=== PATIENT | male | born 1955 | race Caucasian/White ===

== ENCOUNTER 2019-07-23 14:40 | Emergency (ER) | payer OTHER, SELFPAY ==
[2019-07-23 15:06] VITALS: PULSE 85; RESP 16; TEMP 36.6; O2SAT 98
--- NOTE | 2019-07-23 15:09 | ED.NAVMDI ---
HPI - Nausea/Vomiting/Diarrhea General Chief complaint: Nausea/Vomiting/Diarrhea Stated complaint: possible food poison Source: patient Mode of arrival: ambulatory Limitations: no limitations History of Present Illness MD elicited complaint: nausea Onset (ago): hour(s) Associated nausea: Yes Associated abdominal pain: Yes Location of pain: epigastric Radiation: epigastric Severity: mild Quality: cramping Exacerbating factors: none Relieving factors: none Associated symptoms: nausea/vomiting Related Data Home Medications Medication Instructions Recorded Confirmed amlodipine 5 mg PO DAILY 07/23/19 07/23/19 lisinopril 30 mg PO DAILY 07/23/19 07/23/19 metformin 500 mg PO DAILY 07/23/19 07/23/19 topiramate 25 mg PO DAILY 07/23/19 07/23/19 Allergies Allergy/AdvReac Type Severity Reaction Status Date / Time No Known Allergies Allergy Verified 07/23/19 14:59 Review of Systems Review of Systems: All systems reviewed & are unremarkable except as noted in HPI and below PMFSH Past Medical History Medical History Diabetes mellitus HTN (hypertension) Exam Const: General: no acute distress and alert Nutritional Appearance: well nourished Orientation/consciousness: patient oriented x3 HENMT: Head: normal to inspection Eyes: Cornea: corneas normal Pupils: Equal, round and reactive pupils present Neck: Neck: normal visual inspection Chest: Chest palpation & inspection: normal inspection of the chest Resp: Effort & Inspection: normal respiratory effort Auscultation: clear to auscultation bilaterally Cardio: Rhythm: regular rhythm GI: GI Palp: Yes Soft to palpation and Yes Tenderness to palpation present (GI) : Testes: Testes normal Skin: General skin exam: normal color Rashes: no rashes Neuro: General: patient oriented x3 Psych: Appearance: grossly normal Mental Status: mental status grossly normal Thought content: Yes Normal thought content present Critical Care Time Critical Care Time Critical Care Time: No Discharge Plan Discharge Clinical Impression: Food poisoning, Nausea Patient Disposition: Home, Self-Care Condition: Stable Instructions: Antibiotic Form, Acute Nausea and Vomiting (ED), Food Poisoning (ED) Additional Instructions: Take medicine as prescribed and follow-up with primary care physician if symptoms persist or worsen. Drink plenty of fluids. Prescriptions: New ondansetron HCl [Zofran] 4 mg tablet 4 mg PO Q6H PRN (Reason: nausea and vomiting) Qty: 10 RF: 0 pantoprazole [Protonix] 40 mg tablet,delayed release (DR/EC) 40 mg PO HS 28 Days Qty: 28 RF: 0 No Action topiramate 25 mg tablet 25 mg PO DAILY RF: 0 amlodipine 5 mg tablet 5 mg PO DAILY RF: 0 lisinopril 30 mg tablet 30 mg PO DAILY RF: 0 metformin 500 mg tablet extended release 24 hr 500 mg PO DAILY RF: 0 Follow-up/Referrals: Amilcar,MD Oli [Primary Care Provider] - Time of Disposition: 15:15
[2019-07-23] MEDS: ONDANSETRON HCL ODT 4 MG TABLET PO (15:18)
[2019-07-23 15:19] VITALS: RESP 14; O2SAT 100
== END 2019-07-23 15:20 | disposition home or self-care (01) ==
PROVIDERS: Emergency Provider Emergency Medicine; PCP Family Medicine
DX: A05.9 Bacterial foodborne intoxication, unspecified (principal); R11.0 Nausea
CPT/HCPCS: 99283; A9270

== ENCOUNTER 2019-11-10 17:29 | Outpatient (CLI) | payer OTHER, SELFPAY ==
[2019-11-10 18:12] LABS: Prostate Specific Antigen 5.3 ng/mL (< OR = 4.0)
[2019-11-10 18:56] LABS: Add Urine Microscopic? YES; Appearance Urine Clear (Clear); Bilirubin Urine Negative (Negative); Blood Urine Negative (Negative); Color Urine Yellow (Yellow); Glucose Urine UA 3+ (Negative); Ketones Urine Negative (Negative); Leukocyte Esterase Ur Negative (Negative); Nitrate Urine Negative (Negative); Protein Urine Negative (Negative); pH Urine 6.5 (5.0-8.0)
[2019-11-10 19:01] LABS: Bacteria Urine Trace /hpf; RBC Urine 0-2 /hpf (0-2); Squamous Epithelial Cell Urine Rare /hpf (Few); WBC Urine 0-3 /hpf (0-3)
== END 2019-11-10 17:30 | disposition home or self-care (01) ==
LOC: CHSLAB 17:33
PROVIDERS: PCP Family Medicine
DX: N43.3 Hydrocele, unspecified (principal); R97.20 Elevated prostate specific antigen [PSA]; N41.1 Chronic prostatitis; N50.819 Testicular pain, unspecified
CPT/HCPCS: 36415; 81001; 84153; 87077; 87086; 87088; 87186

== ENCOUNTER 2019-11-10 17:42 | Emergency (ER) | payer OTHER, SELFPAY ==
[2019-11-10 17:54] VITALS: BP 151/86; PULSE 58; RESP 16; TEMP 36.3; O2SAT 96
--- NOTE | 2019-11-10 18:14 | ED.LOWEXIN ---
HPI - Extremity Injury (Lower) General Chief Complaint: Extremity Injury, Lower Stated Complaint: toe pain Source: patient Mode of arrival: ambulatory Limitations: no limitations History of Present Illness HPI Narrative: Right big toe pain started today; no history of trauma. has not clipped his nails a long time. Does not have nail clippers. No history of gout Related Data Home Medications Medication Instructions Recorded Confirmed metformin 500 mg PO DAILY 07/23/19 11/10/19 amlodipine 10 mg PO DAILY 11/10/19 11/10/19 fluvoxamine 150 mg PO HS 11/10/19 11/10/19 Allergies Allergy/AdvReac Type Severity Reaction Status Date / Time No Known Allergies Allergy Verified 07/23/19 14:59 Review of Systems Constitutional: Constitutional: Denies chills and Denies fever(s) Musculoskeletal: Comments: No right great toe joint pain. Integumentary/Breasts: Skin/Breast: Denies rash PMFSH Past Medical History Medical History Diabetes mellitus HTN (hypertension) Exam Const: General: no acute distress Skin: Other: right great toe is without rash or redness Extrem: Other: toenails are all long. Right great toe is without swelling. No MTP or IP tenderness or pain with movement. The nail extends past the nail bed about 1.5 cm. Third the dorsal nail is darkened. Patient states this is not new. I am able to reproduce his pain by lifting up on the nail. The nail was cut back by about 1 cm. There was white debris which was cleared away. There was no blood redness or drainage but pressure to this was uncomfortable. Course Course Emergency Course: The nail was taped down. Instructions were given to soak in hot water once or twice a day. Follow up with Oli Fitzgerald in 2 or 3 days if pain persists. Follow-up with a trading manager. Vital Signs Vital signs: Vital Signs Temperature 36.3 C L 11/10/19 17:54 Pulse Rate 58 L 11/10/19 17:54 Respiratory Rate 16 11/10/19 17:54 Blood Pressure 151/86 H 11/10/19 17:54 Pulse Oximetry 96 11/10/19 17:54 Temperature 36.3 C L 11/10/19 17:54 Pulse Rate 58 L 11/10/19 17:54 Respiratory Rate 16 11/10/19 17:54 Blood Pressure 151/86 H 11/10/19 17:54 Pulse Oximetry 96 11/10/19 17:54 MDM - Extremity Injury (Lower) MDM Narrative Medical decision making narrative: Pain with compression of the nail and lifting of the nail in the context of having very long nails suggest the nail may have been partially avulsed from the bed. Discharge Plan Discharge Clinical Impression: Pain in toe Patient Disposition: Home, Self-Care Condition: Stable Instructions: Antibiotic Form Additional Instructions: Follow-up with Oli Cano in 2 or 3 days if toe pain persists. Return if worsening pain. See a trading manager to have nails trimmed. Prescriptions: No Action metformin 500 mg tablet extended release 24 hr 500 mg PO DAILY RF: 0 amlodipine 10 mg tablet 10 mg PO DAILY RF: 0 fluvoxamine 150 mg Capsule,Extended Release 24hr 150 mg PO HS RF: 0 Follow-up/Referrals: Amilcar,MD Oli [Primary Care Provider] - Time of Disposition: 18:23
[2019-11-10 18:36] VITALS: RESP 15
== END 2019-11-10 18:42 | disposition home or self-care (01) ==
PROVIDERS: Emergency Provider Family Medicine; PCP Family Medicine
DX: M79.674 Pain in right toe(s) (principal)
CPT/HCPCS: 99281; 99282

== ENCOUNTER 2020-11-24 11:39 | Outpatient (CLI) | payer OTHER, SELFPAY ==
[2020-11-24 12:42] LABS: Prostate Specific Antigen 5.5 ng/mL (< OR = 4.0)
== END 2020-11-24 11:40 | disposition home or self-care (01) ==
PROVIDERS: PCP Family Medicine
DX: R97.20 Elevated prostate specific antigen [PSA] (principal)
CPT/HCPCS: 36415; 84153

== ENCOUNTER 2021-01-03 11:07 | Outpatient (CLI) | payer OTHER, SELFPAY ==
[2021-01-03 12:20] LABS: Prostate Specific Antigen 5.5 ng/mL (< OR = 4.0)
== END 2021-01-03 11:08 | disposition home or self-care (01) ==
LOC: CHSLAB 11:11
PROVIDERS: PCP Family Medicine
DX: R97.20 Elevated prostate specific antigen [PSA] (principal)
CPT/HCPCS: 36415; 84153

== ENCOUNTER 2021-08-16 21:23 | Emergency (ER) | payer OTHER, SELFPAY ==
[2021-08-16 21:54] VITALS: BP 134/82; PULSE 59; RESP 18; TEMP 36.8; O2SAT 96
--- NOTE | 2021-08-16 21:59 | ED.DENTAL ---
HPI - Dental/Oral General Chief complaint: Dental/Oral Stated complaint: tooth ache Time Seen by Provider: 08/16/21 21:59 Source: patient History of Present Illness HPI Narrative: 66-year-old male with a history of hypertension diabetes mellitus presents to the ER with right lower jaw pain/dental pain. The patient was seen by his dentist and advised deep cleaning of the right lower 1st molar. The patient developed severe pain. MD Complaint: tooth pain Location: Tooth # ( Number 30) Onset (ago): week(s) ( started 1 week ago) Duration: constant Severity scale (1-10): 8 Relieving factors: nothing Exacerbating factors: nothing Context: history of dental caries Treatment prior to arrival: topical analgesic Related Data Home Medications Medication Instructions Recorded Confirmed metformin 500 mg PO DAILY 07/23/19 08/16/21 amlodipine 10 mg PO DAILY 11/10/19 08/16/21 fluvoxamine 150 mg PO HS 11/10/19 08/16/21 famotidine 40 mg PO DAILY 08/16/21 08/16/21 glipizide 5 mg PO DAILY 08/16/21 08/16/21 lisinopril 30 mg PO DAILY 08/16/21 08/16/21 topiramate 25 mg PO DAILY 08/16/21 08/16/21 Allergies Allergy/AdvReac Type Severity Reaction Status Date / Time No Known Allergies Allergy Verified 08/16/21 22:04 Review of Systems Review of Systems: All systems reviewed & are unremarkable except as noted in HPI and below Constitutional: Constitutional: Reports as per HPI and Reports no additional constitutional complaints Eyes: Eyes: Reports as per HPI and Reports no additional eye complaints ENT: Reports system reviewed and no additional complaints, except as documented Comments: right lower jaw pain. Cardiovascular: Cardiovascular: Reports as per HPI and Reports no additional cardiovascular complaints Respiratory: Respiratory: Reports as per HPI and Reports no additional respiratory complaints Gastrointestinal: Gastrointestinal: Reports as per HPI and Reports no additional gastrointestinal complaints Genitourinary: Genitourinary: Reports no additional male genitourinary complaints Musculoskeletal: Musculoskeletal: Reports no additional musculoskeletal complaints and Reports as per HPI Integumentary/Breasts: Skin/Breast: Reports system reviewed and no additional complaints, except as docu and Reports as per HPI Neurologic: Reports system reviewed and no additional complaints, except as documented and Reports as per HPI Psychiatric: Psychiatric: Reports no additional psychiatric complaints and Reports as per HPI Endocrine: Endocrine: Reports no additional endocrine complaints Hematologic/Lymphatic: Hematologic/Lymphatic: Reports no additional hematologic/lymphatic complaints Allergic/Immunologic: Allergic/Immunologic: Reports no additional allergic/immunologic complaints [facility] Past Medical History Medical History (Updated 08/16/21 @ 22:11 by Robin Gonzales MD) Diabetes mellitus HTN (hypertension) Exam Const: General: no acute distress Orientation/consciousness: patient oriented x3 HENMT: Head: normal to inspection Other: All his upper teeth are missing and he has a plate. Bilateral lower 2nd and 3rd molars are missing. Right lower 1st molar looks carious and is tender. Eyes: Conjunctivae: conjunctivae normal Pupils: Equal, round and reactive pupils present Neck: Neck: normal visual inspection and no lymphadenopathy Chest: Chest palpation & inspection: normal inspection of the chest Resp: Effort & Inspection: normal respiratory effort Auscultation: clear to auscultation bilaterally Cardio: Rate: regular rate Rhythm: regular rhythm GI: Auscultation: normal bowel sounds : Testes: Testes normal Back/Spine/Pelvis: Back: no CVA tenderness Skin: General skin exam: normal color Neuro: General: patient oriented x3 and moves all extremities Extrem: General: normal to inspection Psych: Mental Status: mental status grossly normal Course Course Emergency Course: Right lower denta
[2021-08-16] MEDS: AMOXICILLIN 500 MG CAPSULE PO (22:36)
[2021-08-16] MEDS: HYDROcodone/acetaminophen (*CRX) 5-325 MG TABLET 2 TAB PO (22:37)
[2021-08-16 23:05] VITALS: BP 125/82; PULSE 57; RESP 18; TEMP 35.9; O2SAT 97
== END 2021-08-16 23:10 | disposition home or self-care (01) ==
PROVIDERS: Emergency Provider Internal Medicine Critical Care Medicine; PCP Family Medicine
DX: K08.89 Other specified disorders of teeth and supporting structures (principal); K02.9 Dental caries, unspecified
CPT/HCPCS: 99283; A9270

== ENCOUNTER 2022-06-25 09:43 | Outpatient (CLI) | payer OTHER, SELFPAY ==
--- NOTE | 2022-06-25 11:18 | EST_ITS ---
Patient Info Name: Boone Caruso Age: 67 years : 1955 Gender: Male Ht: 73 in Wt: 240 lbs BSA: 2.40 m2 Technical Quality: Good Exam Date: 06/25/2022 10:55 AM Exam Location: [facility] Patient Status: Outpatient Admit Date: 06/25/2022 Staff Ordering Physician: Amilcar, Oli WATSON Attending Provider: Amilcar, Oli WATSON Exam Type: CA stress yusef w NM Study Info A regadenoson stress test was performed. History/Risk Factors Hypertension: Yes Diabetes Mellitus: Yes Summary 1. 1. Negative lexiscan stress test for ischemic ST changes by ECG criteria. 2. 2. Baseline hypertension. 3. 3. Nuclear scan to follow and will be reported separately. Please correlate with it. Protocol: LEXISCAN Stress ECG Details Stage: REST Duration (min): 1 min : 58 sec HR (bpm): 40 SBP (mmHg): 147 DBP (mmHg): 76 Stage: REST Duration (min): 7 min : 52 sec HR (bpm): 43 SBP (mmHg): 147 DBP (mmHg): 76 Stage: STAGE 1 Duration (min): 0 min : 7 sec HR (bpm): 43 SBP (mmHg): 147 DBP (mmHg): 76 Stage: RECOVERY Duration (min): 0 min : 52 sec HR (bpm): 49 SBP (mmHg): 147 DBP (mmHg): 76 Stage: RECOVERY Duration (min): 1 min : 52 sec HR (bpm): 51 SBP (mmHg): 147 DBP (mmHg): 76 Stage: RECOVERY Duration (min): 2 min : 52 sec HR (bpm): 47 SBP (mmHg): 148 DBP (mmHg): 69 Stage: RECOVERY Duration (min): 3 min : 52 sec HR (bpm): 45 SBP (mmHg): 148 DBP (mmHg): 69 Stage: RECOVERY Duration (min): 4 min : 52 sec HR (bpm): 45 SBP (mmHg): 145 DBP (mmHg): 70 Stage: RECOVERY Duration (min): 5 min : 52 sec HR (bpm): 46 SBP (mmHg): 136 DBP (mmHg): 73 Stage: RECOVERY Duration (min): 6 min : 25 sec HR (bpm): 46 SBP (mmHg): 136 DBP (mmHg): 73 Rest HR: 43 bpm Peak HR: 53 bpm Rest Sys BP: 147 mmHg Peak Sys BP: 148 mmHg Max Pred HR: 155 bpm % Max Pred HR: 34 % Target HR: 132 bpm Max RPP: 7,844 bpm*mmHg BP Response: Normal blood pressure response Termination Reason: Completed Protocol Cardiac Symptoms: None Total Time: 0 min : 7 sec Rest Medina BP: 76 mmHg Peak [place] BP: 69 mmHg Total Dose: 0.4 mg Resting ECG Sinus bradycardia, IRBBB. Stress ECG No abnormal ST/T wave changes. Arrhythmias No arrhythmias were observed during the examination. Report Signatures
--- NOTE | 2022-06-25 13:06 | WPDCARIOSTRE ---
Nuclear Stress Test INDICATIONS Indications: Chest pain PROCEDURE Procedure Performed: Myocardial Perf Spect-Multi Procedure: Patient underwent a lexiscan stress test and immediately was injected with 33.0 mCi of cardiolyte. Multiple tomographic images were obtained. These are of good quality. There is moderate size, severe inferoseptal perfusion defect noted during stress imaging. A separate resting images were obtained after patient was injected with 11.0 mCi of cardiolyte. Multiple tomographic images were obtained. These are of good quality. There is moderate size, severe inferoseptal perfusion defect noted during rest imaging. CONCLUSION Conclusion: 1. Myocardial perfusion imaging demonstrating fixed moderate size inferoseptal perfusion defect suggestive of diaphragmatic attenuation artifact. 2. No evidence of reversible ischemia. 3. Left ventriculogram demonstrates normal measured ejection fraction of 59% with no wall motion abnormalities. 4. TID score of 1.02 is normal.
== END 2022-06-25 09:44 | disposition home or self-care (01) ==
PROVIDERS: PCP Family Medicine; Visit Provider Family Medicine
DX: R07.89 Other chest pain (principal); R00.1 Bradycardia, unspecified
CPT/HCPCS: 78452; 93017; A9502; J2785

== ENCOUNTER 2022-08-06 09:39 | Outpatient (CLI) | payer OTHER, SELFPAY ==
--- NOTE | 2022-08-08 14:07 | WPDHOLTEREM ---
Holter/Event Monitor Holter/Event Monitor Date of procedure: 08/06/22 Holter/Event Procedure: 48 Hr Holter Monitor Indications: Bradycardia Conclusion: 1. 48 hour holter monitor on 08/06/22. 2. Underlying rhythm is sinus rhythm. HR range 32-83 bpm; average HR 43 bpm. HR at 32 bpm was at 06:33. 3. There are 367 premature supraventricular complexes, 27 supraventricular couplets, 37 supraventricular bigeminy and 3 supraventricular trigeminy. No supraventricular tachycardia. 4. There is 1 premature ventricular complex. No ventricular tachycardia. 5. No sinoatrial or atrioventricular blocks. There is 1 2 second pause at 06:33. 6. No symptoms available for correlation.
== END 2022-08-06 09:40 | disposition home or self-care (01) ==
LOC: CHSCARD 09:41
PROVIDERS: PCP Family Medicine; Visit Provider Family Medicine
DX: R00.1 Bradycardia, unspecified (principal)
CPT/HCPCS: 93225; 93226

== ENCOUNTER 2023-03-15 23:15 | Emergency (ER) | payer OTHER, SELFPAY ==
[2023-03-15 23:15] VITALS: BP 140/90; PULSE 68; RESP 16; TEMP 36.6; O2SAT 94
--- NOTE | 2023-03-15 23:18 | ED.GENADULT ---
HPI - General Adult General Chief complaint: Unspecified Stated complaint: ingrown toenails on both feet History of Present Illness HPI narrative: 67yo man presents with ingrown toenail right great toe, red and swollen, and less so his left second toe. No fever. Related Data Home Medications Medication Instructions Recorded Confirmed metformin 500 mg tablet,extended 500 mg PO DAILY 07/23/19 08/16/21 release 24 hr amlodipine 10 mg tablet 10 mg PO DAILY 11/10/19 08/16/21 fluvoxamine 150 mg 150 mg PO HS 11/10/19 08/16/21 capsule,extended release 24 hr famotidine 40 mg tablet 40 mg PO DAILY 08/16/21 08/16/21 glipizide 5 mg tablet, extended 5 mg PO DAILY 08/16/21 08/16/21 release 24 hr lisinopril 30 mg tablet 30 mg PO DAILY 08/16/21 08/16/21 topiramate 25 mg tablet 25 mg PO DAILY 08/16/21 08/16/21 Allergies Allergy/AdvReac Type Severity Reaction Status Date / Time No Known Allergies Allergy Verified 08/16/21 22:04 Review of Systems Review of Systems: All systems reviewed & are unremarkable except as noted in HPI and below Constitutional: Constitutional: Denies fever(s) ENT: Denies dysphagia Cardiovascular: Cardiovascular: Denies chest pain Respiratory: Respiratory: Denies dyspnea [facility] Past Medical History Medical History (Updated 03/15/23 @ 23:21 by Lamberto Sparrow MD) Diabetes mellitus HTN (hypertension) Exam Const: General: healthy appearing Eyes: Conjunctivae: conjunctivae normal Resp: Effort & Inspection: normal respiratory effort Auscultation: clear to auscultation bilaterally Cardio: Rate: regular rate Skin: General skin exam: normal color, no jaundice and no pallor Extrem: Other: minimal erythema right great toe Course Vital Signs Vital signs: Vital Signs Temperature 36.6 C 03/15/23 23:15 Pulse Rate 68 03/15/23 23:15 Respiratory Rate 16 03/15/23 23:15 Blood Pressure 140/90 03/15/23 23:15 Pulse Oximetry 94 03/15/23 23:15 Oxygen Delivery Room Air 03/15/23 23:15 Temperature 36.6 C 03/15/23 23:15 Pulse Rate 68 03/15/23 23:15 Respiratory Rate 16 03/15/23 23:15 Blood Pressure 140/90 03/15/23 23:15 Pulse Oximetry 94 03/15/23 23:15 Oxygen Delivery Room Air 03/15/23 23:15 Medical Decision Making MDM Narrative Medical decision making narrative: toe pain DDx gout, cellulitis, impacted toenail. Follow up podiatry. Vital Signs Vital Signs: Vital Signs Temperature 36.6 C 03/15/23 23:15 Pulse Rate 68 03/15/23 23:15 Respiratory Rate 16 03/15/23 23:15 Blood Pressure 140/90 03/15/23 23:15 Pulse Oximetry 94 03/15/23 23:15 Oxygen Delivery Room Air 03/15/23 23:15 Temperature 36.6 C 03/15/23 23:15 Pulse Rate 68 03/15/23 23:15 Respiratory Rate 16 03/15/23 23:15 Blood Pressure 140/90 03/15/23 23:15 Pulse Oximetry 94 03/15/23 23:15 Oxygen Delivery Room Air 03/15/23 23:15 Discharge Plan Discharge Clinical Impression: Great toe pain Qualifiers: Laterality: right Qualified Code(s): M79.674 - Pain in right toe(s) Patient Disposition: Home, Self-Care Condition: Stable Instructions: Antibiotic Form Prescriptions: New sulfamethoxazole-trimethoprim [Bactrim DS] 800-160 mg tablet 2 tablet PO BID 7 Days Qty: 28 0RF ketorolac 10 mg tablet 10 mg PO Q6H PRN (Reason: moderate to severe acute pain) 5 Days Qty: 15 0RF No Action metformin 500 mg tablet extended release 24 hr 500 mg PO DAILY famotidine 40 mg tablet 40 mg PO DAILY glipizide 5 mg tablet extended release 24 hr 5 mg PO DAILY topiramate 25 mg tablet 25 mg PO DAILY lisinopril 30 mg tablet 30 mg PO DAILY amoxicillin 500 mg capsule 500 mg PO TID Qty: 21 0RF amlodipine 10 mg tablet 10 mg PO DAILY fluvoxamine 150 mg Capsule,Extended Release 24hr 150 mg PO HS Follow-up/Referrals: Amilcar,MD Oli [Primary Care Provider]
[2023-03-15] MEDS: KETOROLAC (*BKC) 60 MG/2 ML VIAL IM (23:34)
[2023-03-15] MEDS: SULFAMETHOXAZOLE/TRIMETHOPRIM 800/160 MG DS TABLET 2 TAB PO (23:35)
[2023-03-15 23:38] VITALS: BP 147/80; PULSE 67; RESP 17; TEMP 36.4; O2SAT 97
== END 2023-03-15 23:48 | disposition home or self-care (01) ==
LOC: CHSED 23:27
PROVIDERS: Emergency Provider Emergency Medicine; PCP Family Medicine
DX: M79.674 Pain in right toe(s) (principal); E11.9 Type 2 diabetes mellitus without complications; I10 Essential (primary) hypertension
CPT/HCPCS: 96372; 99284; A9270; J1100; J1885

== ENCOUNTER 2024-05-13 18:36 | Emergency (ER) | payer OTHER, SELFPAY ==
--- NOTE | ~2024-05-13 | XR_ITS ---
EXAMINATION: XR foot RT min 3V DATE: 05/13/2024 19:51 INDICATION: Right great toe pain. TECHNIQUE: 3 views of right foot were obtained. COMPARISON: None. FINDINGS: Alignment is normal. No fracture. There is mild osteoarthritis of first metatarsophalangeal joint. There are enthesophytes at the posterior and plantar aspects of calcaneal tuberosity. IMPRESSION: 1. Mild osteoarthritis of first metatarsophalangeal joint. Reviewed, dictated and finalized at location A. OR [employer]ELOPER
[2024-05-13 18:36] VITALS: BP 135/78; PULSE 63; RESP 18; TEMP 36.6; O2SAT 100
--- NOTE | 2024-05-13 18:39 | ED_ITS ---
HPI - Extremity Problem General Chief complaint: Extremity Problem,Nontraumatic Stated complaint: TOE PAIN Time Seen by Provider: 05/13/24 18:38 Source: patient Mode of arrival: ambulatory Limitations: no limitations History of Present Illness HPI Narrative: 69-year-old male Smoker with a history of hypertension, diabetes mellitus, right big toe ingrowing toenail presents to the ED with -- right big toe pain. The patient had a history of ingrown toenail and had trimming of the right medial edge of the toenail in the recent past. No erythema or purulent discharge. -- Patient has chronic chest pain and had a stress test 1 year ago which was negative. MD Complaint: other ( right big toe/ /ingrowing toenail pain) Onset (ago): day(s) Pain Consistency: constant Location: right Quality: aching Radiation: none Relieving factors: nothing Exacerbating factors: nothing Associated symptoms: denies other symptoms Related Data Home Medications ?Medication ?Instructions ?Recorded ?Confirmed ?Last Taken ?Type metformin 500 mg tablet,extended 500 mg PO DAILY 07/23/19 08/16/21 Unknown History release 24 hr amlodipine 10 mg tablet 10 mg PO DAILY 11/10/19 08/16/21 Unknown History fluvoxamine 150 mg 150 mg PO HS 11/10/19 08/16/21 Unknown History capsule,extended release 24 hr famotidine 40 mg tablet 40 mg PO DAILY 08/16/21 08/16/21 Unknown History glipizide 5 mg tablet, extended 5 mg PO DAILY 08/16/21 08/16/21 Unknown History release 24 hr lisinopril 30 mg tablet 30 mg PO DAILY 08/16/21 08/16/21 Unknown History topiramate 25 mg tablet 25 mg PO DAILY 08/16/21 08/16/21 Unknown History Allergies Allergy/AdvReac Type Severity Reaction Status Date / Time No Known Allergies Allergy Verified 05/13/24 18:39 Review of Systems Review of Systems: All systems reviewed & are unremarkable except as noted in HPI and below Constitutional: Constitutional: Reports as per HPI and Reports no additional constitutional complaints Eyes: Eyes: Reports as per HPI and Reports no additional eye complaints ENT: Reports system reviewed and no additional complaints, except as documented and Reports as per HPI Cardiovascular: Cardiovascular: Reports as per HPI, Reports no additional cardiovascular complaints and Reports chest pain Comments: patient has intermittent chest pain. Respiratory: Respiratory: Reports as per HPI and Reports no additional respiratory complaints Comments: Chronic cough and shortness of breath Gastrointestinal: Gastrointestinal: Reports as per HPI and Reports no additional gastrointestinal complaints Genitourinary: Genitourinary: Reports no additional male genitourinary complaints Musculoskeletal: Musculoskeletal: Reports no additional musculoskeletal complaints and Reports as per HPI Comments: right big toe pain Integumentary/Breasts: Skin/Breast: Reports system reviewed and no additional complaints, except as docu Neurologic: Reports system reviewed and no additional complaints, except as documented and Reports as per HPI Psychiatric: Psychiatric: Reports no additional psychiatric complaints and Reports as per HPI Endocrine: Endocrine: Reports no additional endocrine complaints and Reports as per HPI Hematologic/Lymphatic: Hematologic/Lymphatic: Reports no additional hematologic/lymphatic complaints and Reports as per HPI Allergic/Immunologic: Allergic/Immunologic: Reports no additional allergic/immunologic complaints and Reports as per HPI [facility] Past Medical History Medical History (Updated 05/13/24 @ 20:19 by Robin Gonzales MD) HTN (hypertension) Diabetes mellitus Exam Narrative: blood pressure stable. Afebrile Const: Orientation/consciousness: patient oriented x3 Limitations: no limitations HENMT: Head: normal to inspection Ears: external ears normal Face/Nose/Sinus: Normal external nose present Face and sinus: normal facial exam Mouth: Yes Normal oral and palatal mucosa present Throat: posterior oropharynx normal Eyes: Conjunctivae: conjunctivae normal Pupils: Equal, round and reactive pupils present EOM: EOMs intact bilaterally Direct Ophthalmoscopy: no photophobia Neck: Neck: normal visual inspection and no lymphadenopathy Chest: Chest palpation & inspection: normal inspection of the chest Resp: Auscultation: rhonchi and diminished lung sounds Cardio: Rate: regular rate Rhythm: regular rhythm GI: GI Palp: Yes Soft to palpation Auscultation: normal bowel sounds Other: no tenderness/ rigidity /rebound. : General: Yes no CVA tenderness Back/Spine/Pelvis: Back: no CVA tenderness Skin: General skin exam: normal color Rashes: no rashes Wounds: no wounds Neuro: General: patient oriented x3, moves all extremities, no meningeal signs, no focal motor deficits and CN's II-XI intact bilaterally Cranial nerves: Yes Nystagmus not present Speech: normal speech Extrem: Other: Right big toe ingrowing toenail Psych: Mental Status: mental status grossly normal Affect: normal affect Attitude: cooperative Course Course Emergency Course: right big toe pain/ ingrowing toenail-- x-ray of the right big Toe revealed 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 Vital Signs Vital signs: Vital Signs Temperature 36.6 C 05/13/24 18:36 Pulse Rate 63 05/13/24 18:36 Respiratory Rate 18 05/13/24 18:36 Blood Pressure 135/78 05/13/24 18:36 Pulse Oximetry 100 05/13/24 18:36 Oxygen Delivery Room Air 05/13/24 18:36 Temperature 36.6 C 05/13/24 18:36 Pulse Rate 63 05/13/24 18:36 Respiratory Rate 18 05/13/24 18:36 Blood Pressure 135/78 05/13/24 18:36 Pulse Oximetry 100 05/13/24 18:36 Oxygen Delivery Room Air 05/13/24 18:36 Procedures Other Procedure Procedure 1: Other Procedure: right big toe ingrowing toenail 1% lidocaine infiltrated locally. 5 mL of lidocaine used. The right lateral nail plate was cut. No complications. MDM - Extremity (Nontraumatic) MDM Narrative Medical decision making narrative: Ingrowing toenail right big toe pain Differential Diagnosis Differential diagnosis: Likely gout and cellulitis Discharge Plan Discharge Clinical Impression: Ingrowing right great toenail Great toe pain Qualifiers: Laterality: right Qualified Code(s): M79.674 - Pain in right toe(s) Patient Disposition: Home, Self-Care Condition: Stable Instructions: Antibiotic Form, Ingrown Nail (ED), Partial Nail Avulsion for Ingrown Nail (DC) Patient Language: Persian Prescriptions: New hydrocodone-acetaminophen 5-325 mg tablet 1 tablet PO Q8H PRN (Reason: pain) Qty: 10 0RF No Action metformin 500 mg tablet extended release 24 hr 500 mg PO DAILY famotidine 40 mg tablet 40 mg PO DAILY glipizide 5 mg tablet extended release 24 hr 5 mg PO DAILY topiramate 25 mg tablet 25 mg PO DAILY lisinopril 30 mg tablet 30 mg PO DAILY amoxicillin 500 mg capsule 500 mg PO TID Qty: 21 0RF sulfamethoxazole-trimethoprim [Bactrim DS] 800-160 mg tablet 2 tablet PO BID 7 Days Qty: 28 0RF ketorolac 10 mg tablet 10 mg PO Q6H PRN (Reason: moderate to severe acute pain) 5 Days Qty: 15 0RF amlodipine 10 mg tablet 10 mg PO DAILY fluvoxamine 150 mg Capsule,Extended Release 24hr 150 mg PO HS Follow-up/Referrals: Amilcar,MD Oli [Primary Care Provider] - Time of Disposition: 20:24
[2024-05-13] MEDS: LIDOCAINE 1% LOCAL INJ 10 ML VIAL 5 ML INFILTRATE (18:56)
[2024-05-13] MEDS: KETOROLAC 30 MG/ML VIAL (*BKC) IM (20:32)
[2024-05-13 20:49] VITALS: BP 156/89; PULSE 44; RESP 16; TEMP 37.1; O2SAT 100
--- NOTE | 2024-05-13 20:50 | PC.NURSE ---
Notified ERP regarding pt's low pulse. EKG ordered.
--- NOTE | 2024-05-13 20:53 | ECG_ITS ---
Test Date: 2024-05-13 21:07:11 Measurements Intervals [place] Rate: 39 P: 42 DE: 165 QRS: -34 QRSD: 117 T: 26 QT: 468 QTc: 381 Interpretive Statements SINUS BRADYCARDIA LEFT AXIS DEVIATION [QRS AXIS < -30] MODERATE INTRAVENTRICULAR CONDUCTION DELAY [110+ ms QRS DURATION] MODERATE VOLTAGE CRITERIA FOR LVH, CONSIDER NORMAL VARIANT [MEETS CRITERIA IN ONE OF: R(aVL), S(V1), R(V5), R(V5/V6)+S(V1)] CRITICAL TEST RESULT No previous ECG available for comparison Electronically Signed On 05-14-2024 15:54:39 CASINO PORTER by Peewee Brown M.D.
== END 2024-05-13 21:15 | disposition home or self-care (01) ==
PROVIDERS: Emergency Provider Internal Medicine Critical Care Medicine; PCP Family Medicine
DX: L60.0 Ingrowing nail (principal); I10 Essential (primary) hypertension; E11.9 Type 2 diabetes mellitus without complications
CPT/HCPCS: 11750; 73630; 93005; 96372; 99283; J1885; J2003

== ENCOUNTER 2024-08-26 16:23 | Emergency (ER) | payer OTHER, SELFPAY ==
[2024-08-26 16:23] VITALS: BP 166/81; PULSE 47; PULSE 48; RESP 20; TEMP 36.6; O2SAT 100
--- NOTE | 2024-08-26 16:25 | ED.ARRPALP ---
HPI - Arrhythmia/Palpitations General Chief Complaint: Arrhythmia/Palpitations Stated Complaint: tired, low heart rate Source: patient Mode of arrival: ambulatory Limitations: no limitations History of Present Illness HPI narrative: 69-year-old male with a history of hypertension, diabetes mellitus as sinus bradycardia. The patient had a Holter monitor which revealed heart rates ranging from 32-83. The patient has seen a furnishings conservator and is scheduled to have a pacemaker. The patient was seen in the ED on 05/13/2024 for bradycardia. The patient was asymptomatic with normal blood pressure. No rate limiting medications. The patient presents today with -- tiredness -- decreased heart rate. The patient is noted to have a heart rate of 47 and a blood pressure of 166/81. No chest pain or shortness of breath. No syncopal spells. No lightheadedness. The patient saw furnishings conservator in [place] and was advised a pacemaker. Onset (ago): week(s) Duration: constant Associated symptoms: other ( Generalized weakness) Related Data Home Medications ?Medication ?Instructions ?Recorded ?Confirmed ?Last Taken ?Type metformin 500 mg tablet,extended 500 mg PO DAILY 07/23/19 08/16/21 Unknown History release 24 hr amlodipine 10 mg tablet 10 mg PO DAILY 11/10/19 08/16/21 Unknown History fluvoxamine 150 mg 150 mg PO HS 11/10/19 08/16/21 Unknown History capsule,extended release 24 hr famotidine 40 mg tablet 40 mg PO DAILY 08/16/21 08/16/21 Unknown History glipizide 5 mg tablet, extended 5 mg PO DAILY 08/16/21 08/16/21 Unknown History release 24 hr lisinopril 30 mg tablet 30 mg PO DAILY 08/16/21 08/16/21 Unknown History topiramate 25 mg tablet 25 mg PO DAILY 08/16/21 08/16/21 Unknown History Allergies Allergy/AdvReac Type Severity Reaction Status Date / Time No Known Allergies Allergy Verified 05/13/24 18:39 Review of Systems Review of Systems: All systems reviewed & are unremarkable except as noted in HPI and below Constitutional: Constitutional: Reports as per HPI, Reports no additional constitutional complaints and Reports weakness Eyes: Eyes: Reports as per HPI and Reports no additional eye complaints ENT: Reports system reviewed and no additional complaints, except as documented and Reports as per HPI Cardiovascular: Cardiovascular: Reports as per HPI and Reports no additional cardiovascular complaints Comments: history of bradycardia Respiratory: Respiratory: Reports as per HPI and Reports no additional respiratory complaints Gastrointestinal: Gastrointestinal: Reports as per HPI and Reports no additional gastrointestinal complaints Genitourinary: Genitourinary: Reports no additional male genitourinary complaints and Reports as per HPI Musculoskeletal: Musculoskeletal: Reports no additional musculoskeletal complaints and Reports as per HPI Integumentary/Breasts: Skin/Breast: Reports system reviewed and no additional complaints, except as docu and Reports as per HPI Neurologic: Reports system reviewed and no additional complaints, except as documented and Reports as per HPI Psychiatric: Psychiatric: Reports no additional psychiatric complaints and Reports as per HPI Endocrine: Endocrine: Reports no additional endocrine complaints and Reports as per HPI Hematologic/Lymphatic: Hematologic/Lymphatic: Reports no additional hematologic/lymphatic complaints and Reports as per HPI Allergic/Immunologic: Allergic/Immunologic: Reports no additional allergic/immunologic complaints and Reports as per HPI [facility] Past Medical History Medical History (Updated 08/26/24 @ 17:31 by Robin Gonzales MD) Symptomatic bradycardia HTN (hypertension) Diabetes mellitus Social History Social History (Updated 08/26/24 @ 16:37 by Robin Gonzales MD) Social History: smoker Exam Narrative: heart rate of 48. Blood pressure 154/97. Oxygen saturation on 97% on room air. Const: General: no acute distress Orientation/consciousness: patient oriented x3 Limitations: no limitations HENMT: Head: normal to inspection Ears: external ears normal Face/Nose/Sinus: Normal external nose present Face and sinus: normal facial exam Mouth: Yes Normal oral and palatal mucosa present Throat: posterior oropharynx normal Eyes: Conjunctivae: conjunctivae normal Pupils: Equal, round and reactive pupils present EOM: EOMs intact bilaterally Direct Ophthalmoscopy: no photophobia Neck: Neck: normal visual inspection Chest: Chest palpation & inspection: normal inspection of the chest Resp: Effort & Inspection: normal respiratory effort Auscultation: diminished lung sounds Cardio: Rate: bradycardic Rhythm: regular rhythm GI: GI Palp: Yes Soft to palpation Auscultation: normal bowel sounds Other: No tenderness/ rigidity /rebound. : General: Yes no CVA tenderness Back/Spine/Pelvis: Back: no CVA tenderness Skin: General skin exam: normal color Rashes: no rashes Wounds: no wounds Neuro: General: patient oriented x3, moves all extremities, no meningeal signs, no focal motor deficits and CN's II-XI intact bilaterally Cranial nerves: Yes Nystagmus not present Speech: normal speech Gait exam (Neuro): Normal gait present Extrem: General: normal to inspection and no clubbing, cyanosis or edema Psych: Mental Status: mental status grossly normal Affect: normal affect Attitude: cooperative Course Course Emergency Course: bradycardia with weakness. The patient does not have any syncopal spells. No electrolyte abnormality. Patient is hemodynamically stable. No arrhythmias were noted during his ER stay. Patient is not on any rate limiting drugs. Will have the patient follow-up with his furnishings conservator. No emergent indication for pacemaker at this time. Vital Signs Vital signs: Vital Signs Temperature 36.6 C 08/26/24 16:23 Pulse Rate 48 L 08/26/24 16:23 Respiratory Rate 20 08/26/24 16:23 Blood Pressure 166/81 H 08/26/24 16:23 Pulse Oximetry 100 08/26/24 16:23 Oxygen Delivery Room Air 08/26/24 16:23 Temperature 36.6 C 08/26/24 16:23 Pulse Rate 47 L 08/26/24 16:23 Respiratory Rate 20 08/26/24 16:23 Blood Pressure 166/81 H 08/26/24 16:23 Pulse Oximetry 100 08/26/24 16:23 Oxygen Delivery Room Air 08/26/24 16:23 MDM - Arrhythmia/Palpitations MDM Narrative Medical decision making narrative: Symptomatic bradycardia Differential Diagnosis Differential diagnosis: Likely palpitations, anxiety and ventricular tachycardia Medical Records Attestation: I reviewed the patient's medical records. Lab Data Attestation: I reviewed the patient's lab results. 08/26/24 16:52 08/26/24 16:52 Labs: Lab Results 08/26/24 Range/Units 16:52 WBC 6.5 (4.8-10.8) K/mm3 RBC 5.00 (4.70-6.10) M/mm3 Hgb 14.1 (12.4-15.3) g/dL Hct 42.9 (37.0-46.0) % MCV 85.8 (78.0-102.0) fL MCH 28.2 (27.0-31.0) pg MCHC 32.9 (32-36) g/dL RDW 12.5 (11.6-14.4) % Plt Count 185 (150-420) K/mm3 MPV 10.7 (8.7-11.0) fl Immature Gran % (Auto) 0.8 H (0.0-0.0) % Neut % (Auto) 60.3 (50.0-70.0) % Lymph % (Auto) 28.0 (18.0-42.0) % [place] % (Auto) 9.1 (2.0-11.0) % Eos % (Auto) 1.2 (1.0-6.0) % Baso % (Auto) 0.6 (0.0-1.0) % Lymph # (Auto) 1.82 (1.10-4.50) K/mm3 [place] # (Auto) 0.59 (0.10-0.90) K/mm3 Eos # (Auto) 0.08 (0.02-0.50) K/mm3 Baso # (Auto) 0.04 (0.00-0.10) K/mm3 Abs Immat Gran (auto) 0.05 H (0.00-0.00) K/mm3 Absolute Neuts (auto) 3.93 (1.70-7.20) K/mm3 Absolute Nucleated RBC 0.00 (0.00-0.00) K/mm3 Nucleated RBC % 0.0 (0-0.0) % Sodium 136 (136-145) mmol/L Potassium 4.9 (3.5-5.1) mmol/L Chloride 102 (98-108) mmol/L Carbon Dioxide 31 (21-32) mmol/L Anion Gap 3 L (4-12) mmol/L BUN 16 (7-18) mg/dL Creatinine 1.13 (0.70-1.30) mg/dL Estim Creat Clear Calc 64 ml/min Estimated GFR > 60 (59 - ) Glucose 117 H (70-99) mg/dL Calculated Osmolality 284 L (285-295) mOsm/kg Uric Acid 3.4 L (3.5-7.2) mg/dL Calcium 9.4 (8.5-10.1) mg/dL Total Bilirubin 0.2 (0.00-1.00) mg/dL AST 14 L (15-37) U/L ALT 20 (16-63) U/L Alkaline Phosphatase 97 (46-116) U/L Troponin I 4.1 (0.00-60.4) ng/L NT-Pro-B Natriuret Pep 235 H (0-125) pg/mL Total Protein 6.9 (6.4-8.2) g/dL Albumin 3.5 (3.4-5.0) g/dL TSH 0.91 (0.36-3.74) uIU/mL ECG Data EKG #1: ECG completion date: 08/26/24 ECG completion time: 16:51 Interpretation: sinus bradycardia with a heart rate of 48. Left axis deviation. No ST elevation noted. Discharge Plan Discharge Clinical Impression: Symptomatic bradycardia Patient Disposition: Home, Self-Care Condition: Stable Instructions: Antibiotic Form, Bradycardia (ED) Patient Language: Luxembourgish Prescriptions: No Action metformin 500 mg tablet extended release 24 hr 500 mg PO DAILY famotidine 40 mg tablet 40 mg PO DAILY glipizide 5 mg tablet extended release 24 hr 5 mg PO DAILY topiramate 25 mg tablet 25 mg PO DAILY lisinopril 30 mg tablet 30 mg PO DAILY amoxicillin 500 mg capsule 500 mg PO TID Qty: 21 0RF sulfamethoxazole-trimethoprim [Bactrim DS] 800-160 mg tablet 2 tablet PO BID 7 Days Qty: 28 0RF ketorolac 10 mg tablet 10 mg PO Q6H PRN (Reason: moderate to severe acute pain) 5 Days Qty: 15 0RF hydrocodone-acetaminophen 5-325 mg tablet 1 tablet PO Q8H PRN (Reason: pain) Qty: 10 0RF amlodipine 10 mg tablet 10 mg PO DAILY fluvoxamine 150 mg Capsule,Extended Release 24hr 150 mg PO HS Follow-up/Referrals: Amilcar,MD Oli [Primary Care Provider] - Time of Disposition: 17:31
--- NOTE | 2024-08-26 16:39 | ECG_ITS ---
Test Date: 2024-08-26 16:51:17 Measurements Intervals [place] Rate: 48 P: 50 ID: [id number] QRS: -28 QRSD: 117 T: 37 QT: 432 QTc: 386 Interpretive Statements SINUS BRADYCARDIA INTRAVENTRICULAR CONDUCTION DELAY BASELINE ARTIFACT- I, II, III, AVR, AVL, AVF, V1-V6 ABNORMAL ECG Compared to ECG 05/13/2024 21:07:11 HEART RATE HAS INCREASED Electronically Signed On 08-26-2024 17:21:26 CDT by Demetrio Sims D.O.
--- OUTSIDE RECORDS SUMMARY | 2024-08-26 16:48 | XMS_ITS | Data Portability ---
Author Organization [facility] [address] [place] [address] Assessment No assessment recorded. Plan of Treatment Reminders Order Date Submit Date Provider Last Modified By Organization Details Last Modified Time Details Appointments None recorded. Lab None recorded. Referral urologist referral 2014 015 [email or web address] Not available 5 15:35:49 Procedures None recorded. Surgeries None recorded. Imaging None recorded. Medication Orders ciprofloxa raul 0.3 % eye drops 2014 015 [email or web address] Not available 5 12:15:42 Patient TargetsNo targets recorded. Patient Instructions Encounter Date Encounter Id Patient Instructions Last Modified By Organization Details Last Modified Time 04/26/2015 [id number] earwax blockage: care instructions [email or web address] Not available 04/26/2015 15:26:41 Reason for Referral Urologist Referral for [place] ernestine Referring Physician: Jaiden Newell, Family Medicine, Encounter Date: 08/10/2014 Problems Name Problem SNOMED Code Status Onset Date Resolution Date Notes Provider Name and Address Organization Details Recorded Time Hydrocele Active Steph Sabillon MA null, [facility] 5 14:40:27 Impacted cerumen [id number] Active Jaiden Newell PA-C Attn: Accounting ,[address] [facility], [place], [address] , [facility] 5 14:54:38 Problem Notes None recorded. Medical Equipment None Reported. Allergies No known drug allergies Medications Name Sig Start Date Stop Date Status Note LastModified by Organization Details LastModified Time ciprofloxacin 0.3 % eye drops 3 drops to affected ear tid for 7 days 2014 active Not Available Not Available Not Avai lable lisinopril 40 mg tablet TAKE 1 TABLET (40 MG) BY MOUTH EVERY DAY 2015 active Not Available Not Available Not Avai lable Vitals Date Recorded Body height Body mass index (BMI) Body weight Systolic blood pressure Diastolic blood pressure Provider Name and Address Organization Details Last Updated DateTime 04/26/2015 185.42 cm 30.7 kg/m2 335084.0 2221 g 150 mm[Hg] 100 mm[Hg] Steph Sabillon MA [facility] 5 14:43:08 Date Recorded Body height Body mass index (BMI) Body weight Systolic blood pressure Diastolic blood pressure Provider Name and Address Organization Details Last Updated DateTime 08/10/2014 185.42 cm 31.2 kg/m2 888496.1 67919 g 152 mm[Hg] 86 mm[Hg] Bailey Peacock MA [facility] 5 15:49:20 Social History None recorded. Functional Status None recorded. Mental Status None recorded. Family History Relationship Description Onset Age of this Age Resolved Age Notes LastModified by Organization Details LastModified Time Mother Malignant tumor of colon [email or web address] Not available 2014 14:40:27 Mother Diabetes mellitus [email or web address] Not available 2014 14:40:27 Father Hypertensive disorder [email or web address] Not available 2014 14:40:27 Medical History Condition Response Acid Reflux (GERD) Y High Blood Pressure Y Past Encounters Encounter ID Performer Location Encounter Start Date Encounter Closed Date Diagnosis/Indication Diagnosis SNOMED-CT Code Diagnosis ICD10 Code Diagnosis Note [id number] DEBRA Jerez [facility] [address] [place] [address] 08/10/2014 15:35:02 08/11/2014 09:09:52 [facility] [id number] [address] [place] [address] 04/26/2015 14:36:08 04/26/2015 14:56:35 Impacted melissaminervan [id number] H61.23 Health Concerns Section Related Observation LastModified by Organization Detai ls LastModified Time None Recorded Concern Status LastModified by Organization Details LastModified Time None Recorded Advance Directives Directive None Recorded Payers Encounter Date Sequence Insurance Name Policy Number Policy Dodson Covered Member ID Dodson Member ID Guarantor Name 08/10/2014 1 [place] [employer] Boone Caruso [id number] Boone Caruso 04/26/2015 1 [place] [facility] Boone Caruso [id number] Boone Caruso Notes Date Note Type Note Provider Name and Address Organization Details Recorded Time 08/10/2014 text/html sees Dr. goodman urology in [facility] Jaiden Newell PA-C Attn: Accounting,[address] [place], [address], [facility] 08/10/2014 16:07:43 04/26/2015 text/html reports cerumen impaction Jaiden Newell PA-C Attn: Accounting,[address] [place], [address], [facility] 04/26/2015 14:55:01
--- OUTSIDE RECORDS SUMMARY | 2024-08-26 16:48 | XMS_ITS | Referral Summary ---
Author Organization [facility] Address [address] [place] [address] Care Team Providers Care Mainframe Systems Administrator Name Role Phone Oli Fitzgerald MD Primary Care Provider [phone]- [phone] Encounters Date Type Department Care Team Description 08/03/2024 Orders Only [facility] Scanning, Provider 07/28/2024 Telephone [facility] Cardiology [address] Medicine 8th [place] [address] [place] [address] Beatrice Freeman from Last 3 Months Allergies No known active allergies Medications lisinopril (PRINIVIL,ZESTR IL) 20 mg tablet Take 1 tablet (20 mg total) by mouth daily. 20 tablet 06/27/2017 Active metFORMIN XR (GLUCOPHAGE XR) 500 mg 24 hr tablet Take 2 tablets (1,000 mg total) by mouth 2 (two) times a day 05/07/2020 Active meloxicam (MOBIC) 15 mg tablet Take 1 tablet (15 mg total) by mouth daily 09/11/2022 Active omeprazole (PriLOSEC) 40 mg capsule Take by mouth daily 09/11/2022 Active risperiDONE (RisperDAL) 1 mg tablet Take 3 tablets (3 mg total) by mouth daily 06/21/2016 Active cloNIDine (CATAPRES) 0.1 mg tablet TAKE 2 TABLETS BY MOUTH EVERY MORNING AND 1 TABLET BY MOUTH AT 1 PM 09/11/2022 Active amLODIPine (NORVASC) 5 mg tablet Take 2 tablets (10 mg total) by mouth daily Active fluvoxaMINE (LUVOX) 100 mg tablet Take 3 tablets (300 mg total) by mouth daily 06/21/2016 Active glipiZIDE XL (GLUCOTROL XL) 5 mg 24 hr tablet Take 1 tablet (5 mg total) by mouth daily 11/12/2022 Active hydrocortisone 2.5 % ointment 04/29/2018 Acti ve Active Problems Problem Noted Date Diagnosed Date Tic disorder 11/28/2022 Chronic fatigue 10/29/2022 Bradycardia 10/29/2022 Tobacco use 10/29/2022 Social History Tobacco Use Types Packs/Day Years Used Date Smoking Tobacco: Every Day Cigarettes AUDIT-C Answer Date Recorded Q1: How often do you have a drink containing alcohol? Never 11/26/2022 Q2: How many drinks containi ng alcohol do you have on a typical day when you are drinking? Patient does not drink Q3: How often do you have si x or more drinks on one occasion? Never 11/26/2022 Hunger Vital Sign Answer Date Recorded Within the past 12 months, y ou worried that your food would run out before you got the money to buy more. Never true 11/27/19 23 Within the past 12 months, t he food you bought just didn't last and you didn't have money to get more. Never true 11/26/2022 Personal Safety Answer Date Recorded Getting School Help Needed Not on file 08/10 Sex and Gender Information Value Date Recorded Sex Assigned at Not on file Legal Sex Male 3:40 AM CARGO OPERATIONS AGENT Gender Identity Not on file Sexual Orientation Not on file Last Filed Vital Signs Vital Sign Reading Time Taken Comments Blood Pressure 169/83 11/26/2022 8:45 AM CDT Pulse 75 11/26/2022 8:45 AM CDT Temperature 36.4 C (97.6 F) 11/26/2022 8:45 AM CDT Respiratory Rate 19 11/26/2022 8:45 AM CDT Oxygen Saturation 98% 06/27/2017 6:20 PM CARGO OPERATIONS AGENT Inhaled Oxygen Concentration - - Weight 107 kg (235 lb 12.8 oz) 11/26/2022 8:45 A M CDT Height 185.4 cm (6' 1 ) 11/26/2022 8:45 AM CDT Body Mass Index 31.11 11/26/2022 8:45 AM CDT Plan of Treatment Not on file Procedures Procedure Name Priority Date/Time Associated Diagnosis Comments CARDIOLOGY DOCUMENT SCAN 025 12:22 PM CDT from Last 3 Months Results * Cardiology Document Scan (08/03/2024 12:22 PM CDT) Anatomical Region Laterality Modality Other us Provider Scanning [facility] CARDIAC SERVICES PROCEDURES Edited Result - Final from Last 3 Months [place] Care Teams Mainframe Systems Administrator Relationship Specialty Start Date End Date Oli Fitzgerald MD PCP - General 06/27/17
--- OUTSIDE RECORDS SUMMARY | 2024-08-26 16:48 | XMS_ITS | Clinical Summary ---
Author Organization [facility] Address [address] [place] [address] Care Team Providers Care Headhunter Name Role Phone Oli Painting MD Primary Care Provider [phone]- [phone] Allergies No known active allergies Medications fluvoxamine 100 MG tablet Take 3 tablets by mouth nightly at bedtime. 10/28/2017 Active hydrocortisone 2.5 % ointment 04/29/2018 Acti ve lisinopril 20 MG tablet Take 30 mg by mouth daily. 05/21/2018 Active risperiDONE (RISPERDAL) 1 MG tablet Take 3 mg by mouth daily. 10/28/2017 Active amlodipine 5 MG tablet Take 10 mg by mouth daily. Active fluticasone propionate 50 MCG/ACT nasal spray 1 spray by Nasal route daily. Active sucralfate 1 G tablet Take 1 g by mouth 4 (four) times daily. Active ranitidine 150 MG tablet Take 150 mg by mouth 2 (two) times daily. Active metFORMIN ER 500 MG 24 hr tablet Take 2 tablets (1,000 mg total) by mouth 2 (two) times a day. 30 tablet 05/07/2020 Active cloNIDine (CATAPRES) 0.1 MG tablet Take 2 tablets (0.2 mg total) by mouth. In am 09/11/2022 Active meloxicam (MOBIC) 15 MG tablet Take 1 tablet (15 mg total) by mouth daily. 09/11/2022 Active omeprazole (PRILOSEC) 40 MG capsule Take 1 capsule (40 mg total) by mouth daily. 09/11/2022 Active cloNIDine (CATAPRES) 0.1 MG tablet Take 1 tablet (0.1 mg total) by mouth daily. At 1pm Active Active Problems Problem Noted Date Diagnosed Date Small bowel obstruction (CMS/HCC HHS/HCC) 2019 Elevated PSA 07/25/2018 Benign prostatic hyperplasia without lower urinary tract symptoms 06/06/2018 DM2 (diabetes mellitus, type 2) ([facility] ) Hypertension Encounters Date Type Department Care Team Description 07/28/2024 2:00 PM CLOTHING SUPERVISOR - 07/28/2024 11:59 PM CLOTHING SUPERVISOR Hospital Encounter [facility] [address] [place] [address] Oli Painting MD Discharge Disposition: Home or Self Care (Routine Discharge) 07/28/2024 Travel from Last 3 Months Family History Medical History Relation Comments Hypertension Father Relation Status Comments Father Social History Tobacco Use Types Packs/Day Years Used Date Smoking Tobacco: Every Day Smokeless Tobacco: Never Alcohol Use Standard Drinks/Week Comments No 0 (1 standard drink = 0.6 oz pur e alcohol) AUDIT-C Answer Date Recorded Frequency of Alcohol Consumption Never 06/06/2018 Average Number of Drinks Not on file 019 Frequency of Binge Drinking Not on file 05/27 Sex and Gender Information Value Date Recorded Sex Assigned at Male 07/25/2018 1:23 PM CLOTHING SUPERVISOR Legal Sex Male 7:54 PM CDT Gender Identity Male 07/25/2018 1:23 PM CLOTHING SUPERVISOR Sexual Orientation Not on file Last Filed Vital Signs Vital Sign Reading Time Taken Comments Blood Pressure 171/98 11/09/2023 10:37 PM CDT Pulse 84 11/09/2023 10:37 PM CDT Temperature 36.1 C (97 F) 11/09/2023 10:37 PM CDT Respiratory Rate 22 11/09/2023 10:3 7 PM CDT Oxygen Saturation 100% 11/09/2023 10: 37 PM CDT Inhaled Oxygen Concentration - - Weight 106.4 kg (234 lb 9.6 oz) 024 10:37 PM CDT Height 185.4 cm (6' 1 ) 11/09/2023 10:3 7 PM CDT Body Mass Index 30.95 11/09/2023 10:37 PM CDT Plan of Treatment Health Maintenance Due Date Last Done Comments Colorectal Cancer Screening Colonoscopy (10 Years) 1955 Kidney Health Evaluation 1955 Lipid Panel 1955 Pneumococcal Vaccine: 65+ Years (1 of 2 - PCV) 1963 Diabetes: Retinopathy Eye Exam 1975 Hepatitis C 1975 DTaP, Tdap and Td Vaccines ( 1 - Tdap) 1976 Hemoglobin A1C 11/03/2020 05/05/2020 COVID-19 Vaccine (1 - 2023-2 5 season) 2024 RSV Immunization or 60+ Years (1 - 1-dose 75+ series) 2032 Zoster Vaccines Completed 04/30/2019, 02/10/2019 AAA SCREENING Completed 05/04/2020 Meningococcal B Vaccine Aged Out No l onger eligible based on patient's age to complete this topic Meningococcal Vaccine Aged Out No niko sunny eligible based on patient's age to complete this topic RSV Immunizations Under 20 Months Aged Out No longer eligible b ased on patient's age to complete this topic Procedures Procedure Name Priority Date/Time Associated Diagnosis Comments HOLTER MONITOR 24 HR REC Routine 07/28/2024 3:16 PM CLOTHING SUPERVISOR Bradycardia ECG 12-LEAD Routine 07/28/2024 2:38 PM CLOTHING SUPERVISOR Bradycardia HEMOGLOBIN, GLYCOSYLATED Routine 05/05/2020 9:[address] ABD+PEL W CON STAT 05/04/2020 10:3 3 PM CLOTHING SUPERVISOR from Last 3 Months or Most Recently Relevant to Health Maintenance Results * Holter Monitor 24 Hr Rec (Peds) (07/28/2024 3:16 PM CLOTHING SUPERVISOR) 07/28/2024 3:16 PM CLOTHING SUPERVISOR Narrative ESCRIPTION - 08/03/2024 9:53 AM CDT Patient Name: LETI CASTELLANOS Date of : 1955 Account: [id number] Facility: [facility] Location: [facility] Date of Service: 07/28/2024 Holter Monitor DATE OF MONITORING: July 28, 2024 through July 29, 2024. ORDERING PHYSICIAN: Oli Painting M.D. INTERPRETING PHYSICIAN: Perico Gonzalez M.D. INDICATION: Bradycardia. FINDINGS: 1. Baseline rhythm: Baseline rhythm was normal sinus rhythm at 57 beats per minute. 2. Sinus node function: There is evidence for sinus node dysfunction in this monitoring as noted from underlying chronotropic incompetence seen during this monitoring. The minimum heart rate was 34 beats per minute with an average heart rate of 53 beats per minute and a maximum heart rate of only 89 beats per minute. 3. AV conduction: There is no evidence of significant AV block or pauses longer than 3 seconds. 4. Atrial arrhythmias: No significant atrial arrhythmias were noted. Rare PACs with less than 1% burden noted. Brief runs of nonsustained atrial tachycardia lasting up to 4 beats were noted. 5. Ventricular arrhythmias: No significant ventricular arrhythmias were noted. Rare PVCs with less than 1% burden noted. 6. Symptoms: Patient did not report any symptoms. IMPRESSION: 1. There is evidence for sinus node dysfunction in this monitoring as noted from underlying chronotropic incompetence. The minimum heart rate was 34 beats per minute with an average heart rate of 53 beats per minute and a maximum heart rate of only 89 beats per minute. 2. No other significant atrial or ventricular arrhythmias were noted in this monitoring. Signature/Date: PERICO GONZALEZ #[id number] /PRA A copy of this report has been sent to: OLI PAINTING MD(Autofax) Procedure Note Perico Gonzalez MD - 08/03/2024 Patient Name: LETI CASTELLANOS Date of : 1955 Account: [id number] Facility: [facility] Location: [facility] Date of Service: 07/28/2024 Holter Monitor DATE OF MONITORING: July 28, 2024 through July 29, 2024. ORDERING PHYSICIAN: Oli Painting M.D. INTERPRETING PHYSICIAN: Perico Gonzalez M.D. INDICATION: Bradycardia. FINDINGS: 1. Baseline rhythm: Baseline rhythm was normal sinus rhythm at 57 beats per minute. 2. Sinus node function: There is evidence for sinus node dysfunction in this monitoring as noted from underlying chronotropic incompetence seen during this monitoring. The minimum heart rate was 34 beats per minute with an average heart rate of 53 beats per minute and a maximum heart rate of only 89 beats per minute. 3. AV conduction: There is no evidence of significant AV block or pauses longer than 3 seconds. 4. Atrial arrhythmias: No significant atrial arrhythmias were noted. Rare PACs with less than 1% burden noted. Brief runs of nonsustained atrial tachycardia lasting up to 4 beats were noted. 5. Ventricular arrhythmias: No significant ventricular arrhythmias were noted. Rare PVCs with less than 1% burden noted. 6. Symptoms: Patient did not report any symptoms. IMPRESSION: 1. There is evidence for sinus node dysfunction in this monitoring as noted from underlying chronotropic incompetence. The minimum heart rate was 34 beats per minute with an average heart rate of 53 beats per minute and a maximum heart rate of only 89 beats per minute. 2. No other significant atrial or ventricular arrhythmias were noted in this monitoring. Signature/Date: PERICO CARLOS #[id number] /PRA A copy of this report has been sent to: OLI PAINTING MD(Autofax) us Oli Painting MD HOLTER Final Resul t ESCRIPTION * ECG 12-Lead (07/28/2024 2:38 PM CLOTHING SUPERVISOR) 07/28/2024 2:38 PM CLOTHING SUPERVISOR Narrative [facility] - 07/29/2024 8:48 AM CLOTHING SUPERVISOR [address] [place] [address] Test Date: 2024-07-28 Pat Name: LETI CASTELLANOS Department: 3 Room: Gender: Male Animal Care Provider: : 1955 Requested By: OLI PAINTING Order Number: [id number] Jamee MD: Ke Henderson Measurements Intervals [place] Rate: 43 P: 68 AK: 155 QRS: 37 QRSD: 90 T: 42 QT: 458 QTc: 390 Interpretive Statements SINUS BRADYCARDIA HING SUPERVISOR Procedure Note Ke Henderson MD - 07/29/[address] [place] [address] Test Date: 2024-07-28 Pat Name: LETI CASTELLANOS Department: 3 Room: Gender: Male Animal Care Provider: : 1955 Requested By: OLI PAINTING Order Number: [id number] Reading MD: Ke Henderson Measurements Intervals [place] Rate: 43 P: 68 AK: 155 QRS: 37 QRSD: 90 T: 42 QT: 458 QTc: 390 Interpretive Statements SINUS BRADYCARDIA HING SUPERVISOR Oli Painting MD ECG ORDERABLES Final Resul t Performing Organization Address City/[facility] Co de Phone Number [facility] * (ABNORMAL) HEMOGLOBIN, GLYCOSYLATED (05/05/2020 9:28 AM CLOTHING SUPERVISOR) HGB A1C 7.9(H) <5.7 % 05/05/2020 10:12 AM CLOTHING SUPERVISOR [facility] Comment: 5.7 TO 6.4% INCREASED RISK OF DIABETES > OR = 6.5% CONSISTENT WITH DIABETES PER ADA GUIDELINES ESTIMATED AVG GLUCOSE 180(H) 70 - 140 MG/DL 05/05/2020 10:12 AM CLOTHING SUPERVISOR [facility] 05/05/2020 9:28 AM CLOTHING SUPERVISOR [facility] Final Result Performing Organization Address [facility] Co de Phone Number [facility] [address] [place] [id number], * CT ABD+PEL W IV CON ONLY (05/04/2020 10:33 PM CLOTHING SUPERVISOR) Anatomical Region Laterality Modality Abdomen Computed Tomogra phy 05/04/2020 10:4 3 PM CLOTHING SUPERVISOR Impressions 05/04/2020 10:48 PM CLOTHING SUPERVISOR IMPRESSION: 1. Findings are most consistent with a small bowel obstruction. The zone of transition is not identified with certainty. Surgical consultation is recommended for follow-up. 2. Hepatic steatosis. 3. Diverticulosis. Slot 63 Electronically signed by: Chet Estes M.D. 05/04/2020 10:48:00 PM Narrative 05/04/2020 10:48 PM CLOTHING SUPERVISOR Exam: CT abdomen and pelvis with contrast Date: May 04, 2020 History: Generalized abdominal pain Comparison: None available Technique: Contiguous axial CT images were obtained of the abdomen and pelvis following the uneventful administration of 95 mL Isovue-370 contrast. Additionally, sagittal and coronal reformatted images were obtained. CT dose lowering techniques were used, to include: automated exposure control, adjustment for patient size, and or use of iterative reconstruction. Findings: Lung bases: The lung bases are free of focal airspace consolidation. There is a 4 mm nodule in the left lower lobe of doubtful clinical significance. The heart is not enlarged. Liver: The liver is mildly hypodense. Spleen: Normal. Pancreas: Normal. Adrenal glands: Normal. Gallbladder: Normal. Kidneys: The kidneys demonstrate symmetric enhancement. There is no hydronephrosis or obstructive uropathy. Abdominal mesentery: There is no pathologic intra-abdominal mass or adenopathy. Bowel loops: There is colonic diverticulosis. There is a moderate amount of retained colonic fecal debris. The appendix is normal. There are multiple distended loops of small bowel throughout the abdomen with scattered air-fluid levels. Small bowel loops are distended up to at least 5.7 cm. A definitive zone of transition is not necessarily identified, however, findings are likely related to a small bowel obstruction. The appendix is normal. CT PELVIS: There is trace free fluid in the pelvis. Urinary bladder is intact. Abdominal aorta: There are scattered atherosclerotic changes. Osseous structures: There are severe degenerative changes at L5-S1. No acute fractures are identified. Procedure Note Chet Estes MD - 05/04/2020 Exam: CT abdomen and pelvis with contrast Date: May 04, 2020 History: Generalized abdominal pain Comparison: None available Technique: Contiguous axial CT images were obtained of the abdomen andpelvis following the uneventful administration of 95 mL Isovue-370contrast. Additionally, sagittal and coronal reformatted images wereobtained. CT dose lowering techniques were used, to include: automatedexposure control, adjustment for patient size, and or use of iterativereconstruction. Findings: Lung bases: The lung bases are free of focal airspace consolidation. Thereis a 4 mm nodule in the left lower lobe of doubtful clinical significance.The heart is not enlarged. Liver: The liver is mildly hypodense. Spleen: Normal. Pancreas: Normal. Adrenal glands: Normal. Gallbladder: Normal. Kidneys: The kidneys demonstrate symmetric enhancement. There is nohydronephrosis or obstructive uropathy. Abdominal mesentery: There is no pathologic intra-abdominal mass oradenopathy. Bowel loops: There is colonic diverticulosis. There is a moderate amountof retained colonic fecal debris. The appendix is normal. There aremultiple distended loops of small bowel throughout the abdomen withscattered air-fluid levels. Small bowel loops are distended up to at least5.7 cm. A definitive zone of transition is not necessarily identified,however, findings are likely related to a small bowel obstruction. Theappendix is normal. CT PELVIS: There is trace free fluid in the pelvis. Urinary bladder is intact. Abdominal aorta: There are scattered atherosclerotic changes. Osseous structures: There are severe degenerative changes at L5-S1. Noacute fractures are identified. IMPRESSION: 1. Findings are most consistent with a small bowel obstruction. The zoneof transition is not identified with certainty. Surgical consultation isrecommended for follow-up. 2. Hepatic steatosis. 3. Diverticulosis. Slot 63 Electronically signed by: Chet Estes M.D. 05/04/2020 10:48:00 PM Dominick Aragon MD CT Final Result from Last 3 Months or Most Recently Relevant to Health Maintenance Insurance [facility] Advance Directives * Full Code (Latest Code Status on File) Date Activated Date Inactivated Comments 05/05/2020 2:20 AM 05/06/2020 4:39 PM Care Teams Headhunter Relationship Specialty Start Date End Date Oli Painting MD [address] [place] [id number] PCP - General FAMILY PRACTICE 06/06/18
--- OUTSIDE RECORDS SUMMARY | 2024-08-26 16:48 | XMS_ITS ---
Author Organization Unknown Address [address] [place] [phone] Phone Care Team Providers Care Welfare Worker Name Role Phone LIVAN VELAZQUEZ Attending Unavailable GARIMA Hernandez Primary Unavailable Social History Type Status Start Date End Date Code Code Syst em Sex Male Hospital Discharge Instructions Should you have any questions prior to discharge, please contact a member of your healthcare team. If you have left the hospital and have any questions, please contact your primary care physician. Reason For Referral No Data Found Plan of Treatment No Data Found Encounters Encounter Diagnosis Start Date Code Code Sys tem Ingrowing nail 04/02/2023 SNOMED-CT Personal Care Team Section Performer Name Performer Role Active Date Inactive Da ARGELIA Saez PCP - Primary care physician 2023-04-02
--- OUTSIDE RECORDS SUMMARY | 2024-08-26 16:48 | XMS_ITS | Encounter Summary ---
Author Organization [facility] Address [address] [place] [address] Phone Care Team Providers Care Fabric Designer Name Role Phone Oli Painting MD Primary Care Provider +1- [phone] Encounter Details Date Type Department Care Team (Late st Contact Info) Description 07/28/2024 Telephone [facility] Cardiology [address] Advanced Medicine 8th [place] [address] [place] [address] Beatrice Freeman Social History Tobacco Use Types Packs/Day Years [...] on file Legal Sex Male 3:40 AM GOVERNMENT RELATIONS DIRECTOR Gender Identity Not on file Sexual Orientation Not on file documented as of this encounter Miscellaneous Notes * Telephone Encounter - Beatrice Freeman - 08/04/2024 8:50 AM CDT EP SCHEDULING PT RETURNING CALL TO SCHEDULE IOV. NO DEVICE * Telephone Encounter - Lily Rahman - 08/03/2024 1:36 PM CDT Patient has not returned our call to schedule so an UTR letter has been sent out. * Telephone Encounter - Leslie McfaddenRamon - 07/28/2024 10:13 AM GOVERNMENT RELATIONS DIRECTOR Diagnosis/Reason for Appointment: Bradycardia, possible pacemaker Referring Physician: Dr. Oli Painting Ref Ph: If Referring MD is not PCP, list specialty: pcp Triage Questions Yes No Who/Where/When/Notes Have you ever been diagnosed with cancer, or undergone cancer treatments? [] [x] If 'Yes', Schedulefirst available with Cardio-Oncology If yes where were you treated? Have you ever seen a Train Control Technician in an office setting? [] [x] In [facility] about 6 mo's ago doesn't remember name IF SCHEDULING PATIENT WITH MATERNAL Have you had a baby in the last year or are you ? (If yes send to Dr. Murray for review) [] [] Have you had heart or blood pressure problems during a previous ? (If yes send to Dr. Murray for review) [] [] Dr. Paulina Guzman Patients only: Are you a hemodialysis or peritoneal dialysis patient? (If yes then patient must be referred from another MD, DO NOT SCHEDULE) [] [] Do you regularly exercise, or play any competitive or recreational sports? (If yes proceed to next question) [] [] Are your symptoms or concerns associated with this exercise or activity? (If yes schedule in [facility]) [] [] Patient History Questions Yes No Where/When/Notes Have you EVER been hospitalized for ANY cardiac issue? [x] [] 09/2023 @ [facility] in [facility] Have you ever had any cardiac testing, imaging, or procedures? (Testing - echo, EKG, stress) (Imaging - Cardiac MRI, CT or calcium scoring) (Procedure - Ablation, Cardioversion, CABG, Cath) [x] [] EKG 2 mo's ago thru PCP Stress Test year ago @ [place] in [facility] Have you ever had a sleep study? [] [x] Do you have a device? If yes what type? (Pacemaker, Defibrillator, Implanted Loop Recorder) [] [x] If yes, where and when was device put in? Business Support? ([employer], [employer], [employer]) Appointment Date: Provider: Location: [] Confirm appt date, time, provider and location. [] Advise pt to arrive 15-20 min early. [] Advise patient to bring medications/list, photo ID and insurance card [] Advise of New Patient Packet being mailed to them. RNMENT RELATIONS DIRECTOR * Telephone Encounter - Beatrice Freeman - 07/28/2024 8:31 AM CST Insurance: AETNA Diagnosis/Reason for Visit: BRADYCARDIA Best Contact Number for Patient: [phone] PCP: DR OLI PAINTING SPOKE WITH KARLA PLASCENCIA Referring Physician: PCP Referring Phone: Referring Specialty: RNMENT RELATIONS DIRECTOR documented in this encounter Plan of Treatment Not on file documented as of this encounter Visit Diagnoses Not on filedocumented in this encounter Care Teams Fabric Designer Relationship Specialty Start Date End Date Oli Painting MD PCP - General 06/27/17 documented as of this encounter
--- OUTSIDE RECORDS SUMMARY | 2024-08-26 16:48 | XMS_ITS | Encounter Summary ---
Author Organization [facility] Address [facility] [place] [address] Care Team Providers Care Conference Services Director Name Role Phone Oli Fitzgerald MD Primary Care Provider [phone] Encounter Details Date Type Department Care Team (Late st Contact Info) Description 11/01/2018 Abstract [facility] CONVERSION [address] [place] [address] , Generic Conversion, Social History Tobacco Use Types Packs/Day Years [...] Sex Assigned at Male 07/25/2018 1:23 PM .NET DEVELOPER Legal Sex Male 7:54 PM CDT Gender Identity Male 07/25/2018 1:23 PM .NET DEVELOPER Sexual Orientation Not on file documented as of this encounter Plan of Treatment Not on file documented as of this encounter Visit Diagnoses Not on filedocumented in this encounter Care Teams Conference Services Director Relationship Specialty Start Date End Date Oli Fitzgerald MD [address] [place] [address] PCP - General FAMILY PRACTICE 06/06/18 documented as of this encounter
--- OUTSIDE RECORDS SUMMARY | 2024-08-26 16:48 | XMS_ITS | Clinical Summary ---
Author Organization [facility] Address [address] [place] [address] Care Team Providers Care Associate Project Manager Name Role Phone Oli Fitzgerald MD Primary Care Provider [phone] Allergies No known active allergies Medications lisinopril [...] fatigue 10/29/2022 Bradycardia 10/29/2022 Tobacco use 10/29/2022 Encounters Date Type Department Care Team Description 08/03/2024 Orders Only [facility] Scanning, Provider 07/28/2024 Telephone [facility] [address] [facility] [address] [place] [address] [place] [address] Beatrice Freeman from Last 3 Months Social History Tobacco Use Types Packs/Day Years [...] on file Legal Sex Male 3:[address] Gender Identity Not on file Sexual Orientation Not on file Obstetrics History Last Filed Vital Signs Vital Sign Reading Time Taken Comments Blood Pressure 169/83 11/26/2022 8:45 AM CDT Pulse 75 11/26/2022 8:45 AM CDT Temperature 36.4 C (97.6 F) 11/26/2022 8:45 AM CDT Respiratory Rate 19 11/26/2022 8:45 AM CDT Oxygen Saturation 98% 06/27/2017 6:[address]NAGER Inhaled Oxygen Concentration - - Weight 107 kg (235 lb 12.8 oz) 11/26/2022 8:45 A M CDT Height 185.4 cm (6' 1 ) 11/26/2022 8:45 AM CDT Body Mass Index 31.11 11/26/2022 8:45 AM CDT Plan of Treatment Health Maintenance Due Date Last Done Comments Colon Cancer Screening-Colonoscopy 1957 Depression Screening 1957 Fall Risk Assessment 1957 Hepatitis C Screening 1957 Prostate Cancer Screening-PSA 1957 DTaP/Tdap/Td Vaccine (1 - Tdap) 1968 Hepatitis B Screening 1975 Abdominal Aortic Aneurysm (A AA) Screen 2022 05/04/2020 Well Visit 65+ 2022 Covid-19 Vaccine (3 - 2023-2 5 season) 2024 09/09/2020, 08/12/2020 Influenza Vaccine (#1) 2024 2, 02/26/2022, 05/08/2021, Additional history exists Zoster Vaccine Completed 04/30/2019, 02/10/2019 Pneumococcal vaccine 65+ Completed 04/03/2022 Procedures Procedure Name Priority Date/Time Associated Diagnosis Comments CARDIOLOGY DOCUMENT SCAN 025 12:22 PM CDT from Last 3 Months Results * Cardiology Document Scan (08/03/2024 12:22 PM CDT) Anatomical Region Laterality Modality Other us Provider Scanning [facility] CARDIAC SERVICES PROCEDURES Edited Result - Final from Last 3 Months Insurance [facility] [employer] [place] Care Teams Associate Project Manager Relationship Specialty Start Date End Date Oli Fitzgerald MD PCP - General 06/27/17
--- OUTSIDE RECORDS SUMMARY | 2024-08-26 16:48 | XMS_ITS ---
Author Organization Unknown Address [address] [place] [phone] Phone Care Team Providers Care Lehr Tender Name Role Phone DEION MITCHELL Attending Unavailable GARIMA Hernandez Primary Unavailable Results RIBS RIGHT W/ 1V CHEST - Com pleted: 09/26/2023 21:24 LOINC: ADDENDUM REPORT: ADDENDUM: This addendum report supersedes the original report dated 09/27/2023 The purpose of this addendum is to correct a dictation error within the impression of the report. No acute displaced right-sided rib fracture is seen. END OF ADDENDUM REPORT EXAM DESCRIPTION: RIBS RIGHT W/ 1V CHEST REASON FOR STUDY: Pain in right back/rib area for 1 week. Patient states he hasn't had any trauma and does not know what he did. Stated to ER doctor that he might've coughed really hard at some point. History of HTN and Tourette syndrome. Duration: 1 week TECHNIQUE: 2 view(s) of the right ribs with single view of the chest. COMPARISON: None FINDINGS: Coarse interstitial opacities are noted, likely chronic changes. No gross consolidation. No significant pleural effusion or pneumothorax. Heart size and mediastinal contours are normal. No acute displaced right-sided rib fracture seen. IMPRESSION: 1. No gross acute cardiopulmonary abnormality. 2. New acute displaced right-sided rib fracture seen. THIS IS AN ELECTRONICALLY VERIFIED FINAL REPORT 09/26/2023 9:51 PM - Electronically signed by Sigifredo Flores M.D. AG: SOUMYA Report ID: [id number] Reading Location: [id number] THIS IS AN ELECTRONICALLY VERIFIED FINAL REPORT 09/27/2023 6:58 AM ? Addendum Electronically signed by Sigifredo Flores M.D. AG: SOUMYA Report ID: [id number] Reading Location: [place] [address] Social History Type Status Start Date End [...] Diagnosis Start Date Code Code Sys tem Strain of muscle and tendon of front wall of thorax, initial encounter 09/26/2023 SNOMED-CT Personal Care Team Section Performer Name Performer Role Active Date Inactive ARGELIA Kent PCP - Primary care physician 2023-04-02 Imaging Narrative Notes
[2024-08-26 16:56] LABS: Basophils Absolute Auto 0.04 K/mm3 (0.00-0.10); Basophils Percent Auto 0.6 % (0.0-1.0); Eosinophils Absolute Auto 0.08 K/mm3 (0.02-0.50); Eosinophils Percent Auto 1.2 % (1.0-6.0); Hematocrit 42.9 % (37.0-46.0); Hemoglobin 14.1 g/dL (12.4-15.3); Immature Granulocyte Absolute 0.05 K/mm3 (0.00-0.00); Immature Granulocyte Percent A 0.8 % (0.0-0.0); Lymphocytes Absolute Auto 1.82 K/mm3 (1.10-4.50); Mean Corpuscular HGB Conc 32.9 g/dL (32-36); Mean Corpuscular Hemoglobin 28.2 pg (27.0-31.0); Mean Corpuscular Volume 85.8 fL (78.0-102.0); Mean Platelet Volume 10.7 fl (8.7-11.0); Monocytes Absolute Auto 0.59 K/mm3 (0.10-0.90); Monocytes Percent Auto 9.1 % (2.0-11.0); Neutrophils Absolute Auto 3.93 K/mm3 (1.70-7.20); Neutrophils Percent Auto 60.3 % (50.0-70.0); Platelet Count Result 185 K/mm3 (150-420); Red Cell Distribution Width 12.5 % (11.6-14.4); White Blood Count 6.5 K/mm3 (4.8-10.8)
--- OUTSIDE RECORDS SUMMARY | 2024-08-26 17:00 | XMS_ITS ---
Author Organization Unknown Address [address] [place] [phone] Phone Care Team Providers Care Binder And Box Builder Name Role Phone DEION MITCHELL Attending Unavailable [...] Sigifredo Flores M.D. AG: SOUMYA Report ID: [id number] Reading Location: [id number] THIS IS AN ELECTRONICALLY VERIFIED FINAL REPORT 09/27/2023 6:58 AM ? Addendum Electronically signed by Sigifredo Flores M.D. AG: SOUMYA Report ID: [id number] Reading Location: [place] [address] Social History Type Status Start Date End [...]
--- OUTSIDE RECORDS SUMMARY | 2024-08-26 17:00 | XMS_ITS ---
Author Organization Unknown Address [address] [place] [phone] Phone Care Team Providers Care Machine Fixer Name Role Phone LIVAN VELAZQUEZ Attending Unavailable [...]
[2024-08-26 17:17] LABS: Alanine Aminotransferase 20 U/L (16-63); Albumin Level 3.5 g/dL (3.4-5.0); Alkaline Phosphatase 97 U/L (46-116); Anion Gap 3 mmol/L (4-12); Aspartate Amino Transferase 14 U/L (15-37); Bilirubin,Total 0.2 mg/dL (0.00-1.00); Blood Urea Nitrogen 16 mg/dL (7-18); Calcium 9.4 mg/dL (8.5-10.1); Carbon Dioxide 31 mmol/L (21-32); Chloride 102 mmol/L (98-108); Estimated CRCL calculation 64 ml/min; Estimated Glomerular Filt Rate > 60; Glucose 117 mg/dL (70-99); NT Pro B Type Natriuretic Pept 235 pg/mL (0-125); Osmolality Calculated 284 mOsm/kg (285-295); Potassium 4.9 mmol/L (3.5-5.1); Sodium 136 mmol/L (136-145); Total Protein 6.9 g/dL (6.4-8.2); Troponin I 4.1 ng/L (0.00-60.4)
[2024-08-26 17:20] VITALS: BP 136/77; PULSE 45; RESP 20; TEMP 36.9; O2SAT 97
[2024-08-26 17:21] LABS: Thyroid Stimulating Hormone 0.91 uIU/mL (0.36-3.74); Uric Acid 3.4 mg/dL (3.5-7.2)
== END 2024-08-26 17:46 | disposition home or self-care (01) ==
PROVIDERS: Emergency Provider Internal Medicine Critical Care Medicine; PCP Family Medicine
DX: R00.1 Bradycardia, unspecified (principal); I10 Essential (primary) hypertension; E11.9 Type 2 diabetes mellitus without complications
CPT/HCPCS: 36415; 80053; 83880; 84443; 84484; 84550; 85025; 93005; 99284